=== PATIENT | male | born 1945 | race Caucasian/White ===

== ENCOUNTER 2017-08-01 08:16 | Day surgery (SDC) | payer MEDICARE, OTHER ==
--- NOTE | 2017-07-20 08:38 | HP ---
AMENDED REPORT NOW INCLUDES COSIGNER DESIGNATION - ESIGNED BEFORE ADJUSTMENT CC: Dr. Paresh Valadez; Dr. Low, Rheumatology * ADMISSION HISTORY AND PHYSICAL: DATE OF ADMISSION: 08/01/17. ATTENDING SURGEON: Dr. Mario Nieves * (JUAN DIEGO Spears, dictating). CHIEF COMPLAINT: Right inguinal hernia; umbilical hernia. HISTORY OF PRESENT ILLNESS: This is a 71-year-old hypertensive, obese male, who reports a 20-year history of intermittent right groin pain, this occurring primarily after strenuous activity and associated with a bulge. He states that he has never been previously told that he had an inguinal hernia, though had been told many years ago that he was likely to develop a hernia on that side. He has also had an umbilical bulge present for approximately 1 year, which has been minimally symptomatic. The patient has used a truss and/or scrotal support for the better part of the past 20 years to help control some of the discomfort that he experiences. This discomfort, however, has increased in recent months and he was referred here for evaluation. In addition, he reports one episode of gross hematuria and underwent renal ultrasound on 06/01/17, which was a normal study and the hematuria has not recurred. He was seen initially in our office by Dr. Nieves on 05/21/[address] Nieves's chart notes indicate that exam was limited by the patient's tenderness. It was felt that there was likely a right inguinal hernia and definitely confirmed umbilical hernia, which was tender to palpation, but reducible. The patient was requested to take his usual pain medications for re- examination this morning. However, he did not take any pain medication and likewise on today's exam, he is exquisitely tender and does not permit a complete definitive exam. Dr. Nieves's impression is that of right inguinal hernia as well as umbilical hernia and recommended plan is laparoscopic look at the right groin preperitoneal area to ascertain if there is indeed a hernia and to repair that with mesh. The umbilical hernia will be repaired in an open fashion. The patient understands the indications, the risks, benefits and alternatives and the expected perioperative course. He would like to proceed as scheduled with laparoscopic repair right inguinal hernia with mesh and open repair umbilical hernia. PAST MEDICAL HISTORY: 1. Hypertension. 2. Obesity. 3. BPH. 4. Chronic low back pain. 5. Bilateral eye disease including vitreous rupture. 6. Glaucoma. 7. Allergic rhinitis. 8. History of childhood asthma (minimally active as an adult). PAST SURGICAL HISTORY: Previous surgeries: 1. Multiple eye surgeries. 2. Tonsillectomy. No reported surgical or anesthesia complications. CURRENT MEDICATIONS: 1. Tizanidine 4 mg one half tablet t.i.d. p.r.n. 2. Celebrex 200 mg q. day (not currently taking). 3. EpiPen p.r.n. (uses rarely). 4. Zyrtec 10 mg q. day p.r.n. (not currently using). 5. Fluticasone nasal spray 2 sprays each nostril q. day (not currently using). 6. Amlodipine 5 mg q. day. 7. Hydrocodone and acetaminophen 5/325, one to two tablets t.i.d. p.r.n. (not currently using). 8. ProAir HFA 2 puffs q. 4 to 6 hours p.r.n. (has not needed recently). 9. Tramadol 50 mg q. 6 hours p.r.n. 10. Tamsulosin 0.4 mg q. day. 11. Montelukast 10 mg q. day p.r.n. ALLERGIES: Drug allergies, none known. FAMILY HISTORY: Negative for anesthesia problems, bleeding, or clotting disorder. SOCIAL HISTORY: The patient is . He is retired. He is a former smoker , who quit in 1990. He drinks alcohol infrequently and denies other recreational drug use. REVIEW OF SYSTEMS: General: No recent constitutional symptoms or acute illnesses. His weight is down approximately 15 to 20 pounds intentionally as he is trying to relieve some of the burden on his arthritis and joints and avoid chronic pain medication and/or other interventions. Cardiovascular: No chest pain, palpitations, history of murmur. He is treated for hypertension. Respiratory: No recent exacerbations of his asthma or allergies. No chronic cough. No shortness of breath. GI: No problems reported. Colonoscopy done approximately 3 years ago, normal by his report. : No urinary difficulties, though he does have BPH and is managed on tamsulosin, see also above per HPI. I did encourage him to consider consultation with urologist if he has persistent pain following surgery and/or future episodes of hematuria. Endocrine: No diabetes or thyroid dysfunction. HEENT: The patient is scheduled for an eye procedure at [facility] in [place] on . PHYSICAL EXAMINATION GENERAL: Well-nourished obese male, in no acute distress. VITAL SIGNS: Height 5 feet 8 inches, weight 218 pounds, BMI 34. Temperature 97.7, blood pressure 118/70, pulse 64. HEENT: Pupils are somewhat unequal presumably from prior surgeries. EOMs intact. No conjunctival pallor. Oropharynx: Teeth in good repair. No intraoral lesions. NECK: No lymphadenopathy, thyromegaly, or masses. LUNGS: Clear to auscultation. No wheezes or rales. HEART: Regular rate and rhythm. No murmur noted. ABDOMEN: Obese, visible umbilical bulge, consistent with known umbilical hernia. Abdomen is soft, nontender and without palpable masses or organomegaly. Right groin exam as above per Dr. Nieves. No hernia noted on the left. That exam was not repeated today by myself. EXTREMITIES: No edema. NEUROLOGICAL: Grossly intact. SKIN: Warm and dry. No suspicious rashes or lesions. BACK: No spinous process or CVA tenderness. IMPRESSION: Right inguinal hernia and umbilical hernia. PLAN: Laparoscopic repair of right inguinal hernia with mesh; open repair, umbilical hernia. JUAN DIEGO SPEARS [id number]/CPS #: [id number] [facility] CENTERSrini
[~2017-08-01 08:16] MED LIST: Buffered Lidocaine 0.9% SYRIN* 5 ML/SYR SYRINGE INTRADERM ONE; Buffered Lidocaine 0.9% SYRIN* 5 ML/SYR SYRINGE ONE; Bupivacaine 0.25% SDV* 30 ML ONE; Lidocaine 2% PF * 5 ML VIAL ONE; Naloxone* 0.4 MG/ML 1 ML VIAL IV PRN; Ondansetron INJ* 2 MG/ML VIAL IV PRN; Propofol* 10 MG/ML 20 ML BTL IV PUSH ONE; Rocuronium* 10 MG/ML VIAL ONE; Sodium Citrate/Citric Acid* 15 ML UDC ONE; Sodium Citrate/Citric Acid* 15 ML UDC PO ONE
[2017-08-01] MEDS ORDERED: fentaNYL* 50 MCG/ML 2 ML VIAL (100 MCG VIAL) ONE ×3 (09:09→12:44)
[2017-08-01] MEDS ORDERED: Neostigmine Methylsulfate* 2 MG/2 ML SYRINGE ONE (10:28)
[2017-08-01] MEDS ORDERED: Glycopyrrolate IV* 0.2 MG/ML 1 ML VIAL ONE (10:28)
[2017-08-01] MEDS ORDERED: EPHEDrine (Pressors)* 50 MG/ML VIAL ONE (10:29)
[2017-08-01] MEDS ORDERED: Dexamethasone IV* 4 MG/ML 1 ML (4 MG) ONE (10:29)
[2017-08-01] MEDS ORDERED: oxyCODONE/Acetamin 5/325 MG* TAB PO PRN (10:49)
[2017-08-01] MEDS: fentaNYL* 50 MCG/ML 2 ML VIAL (100 MCG VIAL) IV PRN ×3 (10:51→12:44)
[2017-08-01] MEDS ORDERED: oxyCODONE/Acetamin 5/325 MG* TAB ONE (11:07)
[2017-08-01] MEDS ORDERED: Ketorolac INJ* 30 MG/ML 1 ML VIAL ONE (13:16)
[2017-08-01 15:25] VITALS: BP 133/74
== END 2017-08-01 14:15 | disposition home or self-care (01) ==
LOC: OR 08:16
PROVIDERS: ATTEND Surgery
DX: K40.90 Unilateral inguinal hernia, without obstruction or gangrene, not specified as recurrent (principal); K42.9 Umbilical hernia without obstruction or gangrene; Z87.891 Personal history of nicotine dependence; I10 Essential (primary) hypertension; M54.5 Low back pain; Z68.33 Body mass index [BMI] 33.0-33.9, adult; G47.33 Obstructive sleep apnea (adult) (pediatric); J45.909 Unspecified asthma, uncomplicated
CPT/HCPCS: 88302; A9270-GY; C1776; C1781; J1100; J1885; J2704; J3010

== ENCOUNTER 2017-09-15 16:40 | Emergency (ER) | payer MEDICARE, OTHER ==
[2017-09-15] MEDS ORDERED: Ondansetron INJ* 2 MG/ML VIAL IV ONE (17:02)
[2017-09-15] MEDS ORDERED: Morphine INJ* 4 MG/ML 1 ML SYRINGE (NEW SYRINGE VERSION) IV ONE (17:02)
[2017-09-15] MEDS ORDERED: Ondansetron INJ* 2 MG/ML VIAL ONE (17:03)
[2017-09-15] MEDS ORDERED: Morphine INJ* 10 MG/ML 1 ML CARPUJECT ONE (17:03)
[2017-09-15] MEDS ORDERED: Morphine INJ* 10 MG/ML 1 ML CARPUJECT IV ONE (17:08)
[2017-09-15] MEDS ORDERED: Orphenadrine Citrate IV* 30 MG/ML 2 ML VIAL IV ONE (17:11)
--- NOTE | 2017-09-15 18:05 | RAD ---
Indication: RIGHT leg pain above the ankle post fall. Deformity. Comparison: March 15, 2016 RIGHT foot radiographs. Technique: AP, mortise, and lateral views RIGHT ankle. AP and lateral views of the RIGHT lower leg. Report: Oblique fracture through the distal diaphysis and distal metaphysis of the fibula terminating inferiorly at the level of the ankle mortise. One cortex width lateral displacement. Associated superior lateral widening of the ankle mortise. Talocrural joint effusion. Negative for additional fracture at the ankle or lower leg. Soft tissue swelling most prominent over the anterior and lateral aspects of the ankle. IMPRESSION: Lombardo type B fracture pattern of the distal fibula which appears unstable given widening at the superolateral margin of the ankle mortise. Negative for additional fracture.
[2017-09-15 19:16] VITALS: BP 145/71
[2017-09-15] MEDS ORDERED: Morphine INJ** 4 MG/ML 1 ML CARPUJECT IV ONE (20:03)
[2017-09-15] MEDS ORDERED: Morphine INJ* 4 MG/ML 1 ML SYRINGE (NEW SYRINGE VERSION) ONE (20:07)
[2017-09-15] MEDS ORDERED: oxyCODONE/Acetamin 5/325 MG* TAB PO ONE (20:32)
--- NOTE | 2017-09-15 20:33 | RAD ---
Indication: Fall down stairs. Pain and deformity post fall. Comparison: No relevant prior exams available on the [facility] PACS for comparison. Technique: AP pelvis and AP and crosstable lateral views RIGHT femur. Report: The RIGHT hip is normally located. No cortical disruption or suspicious trabecular irregularity evident at the RIGHT hip, entire femur, or pelvis to indicate fracture. Preserved bilateral hip joint spaces. Negative for pelvic joint diastases. Unremarkable soft tissue contours. IMPRESSION: No radiographic evidence for RIGHT hip or femur fracture. Negative exam. As x-rays may be negative with nondisplaced hip fracture if there is persistent clinical concern MRI or in setting of contraindication to MRI or limitation in emergent access to MRI CT would be suggested.
--- NOTE | 2017-09-15 20:33 | RAD ---
Indication: Fall down stairs. Pain and deformity post fall. Comparison: No relevant prior exams available on the [facility] PACS for comparison. Technique: AP pelvis and AP and crosstable lateral views RIGHT femur. Report: The RIGHT hip is normally located. No cortical disruption or suspicious trabecular irregularity evident at the RIGHT hip, entire femur, or pelvis to indicate fracture. Preserved bilateral hip joint spaces. Negative for pelvic joint diastases. Unremarkable soft tissue contours. IMPRESSION: No radiographic evidence for RIGHT hip or femur fracture. Negative exam. As x-rays may be negative with nondisplaced hip fracture if there is persistent clinical concern MRI or in setting of contraindication to MRI or limitation in emergent access to MRI CT would be suggested.
--- NOTE | 2017-09-15 20:43 | ED ---
Lower Extremity - HPI Summary HPI Summary: Patient is a 72-year-old male presenting to the ED after a slip and fall with a potential inversion of the ankle injury. He endorses tentative 10 pain on arrival. He is unable to bear weight. There is a small deformity into the lateral ankle. He also endorses pain throughout the entire leg including the hip. Endorses numbness and tingling to the hip and down the lateral side of the upper leg, but denies any numbness or tingling to the bilateral feet or lower extremity. Pulses intact +2 bilaterally. Has never injured the foot in the past. Denies any head injury or other pain at this time. - History of Current Complaint Chief Complaint: EDExtremityLower Stated Complaint: FELL DOWN STAIRS Time Seen by Provider: 09/15/17 16:50 Hx Obtained From: Patient Mechanism Of Injury: Fall From A Standing Position, Twisted Onset of Pain: Immediate Onset/Duration: Minutes Severity Initially: Severe Severity Currently: Moderate Pain Intensity: 9 Pain Scale Used: 0-10 Numeric Timing: Constant Location: Is Discrete @ - Right lateral malleolus and anterior lower extremity Character Of Pain: Aching Associated Signs And Symptoms: Positive: Swelling. Negative: Redness, Bruising , Weakness, Dizziness, Syncope Aggravating Factor(s): Standing, Ambulation Alleviating Factor(s): Rest Able to Bear Weight: No - Risk Factors Gout Risk Factors: Age Over 40, Male DVT Risk Factors: Negative Septic Arthritis Risk Factor: Negative - Allergies/Home Medications Allergies/Adverse Reactions: Allergies Allergy/AdvReac Type Severity Reaction Status Date / Time ENVIRONMENTAL Allergy Intermediate Eyes Uncoded 08/01/17 08:28 Itchy/Swollen/Red/Watery Home Medications: Home Medications EPINEPHrine [Epipen] 0.3 mg IJ ONCE PRN 09/15/17 [History Confirmed 09/15/17] PMH/Surg Hx/FS Hx/Imm Hx Previously Healthy: Yes Endocrine/Hematology History: Denies: Hx Diabetes Cardiovascular History: Reports: Hx Hypertension - controlled with meds Denies: Hx Pacemaker/ICD Respiratory History: Reports: Hx Asthma - MAINTAINED - HAS PRN INHALER AND EPI- PEN, Hx Seasonal Allergies, Hx Sleep Apnea GI History: Reports: Hx Ulcer - gastric - healed History: Reports: Hx Benign Prostatic Hyperplasia, Other Problems/ Disorders - BPH Denies: Hx Renal Disease Musculoskeletal History: Reports: Hx Arthritis - osteoarthritis, rheumatoid, Hx Back Problems Sensory History: Reports: Hx Cataracts - forming, Hx Contacts or Glasses Denies: Hx Hearing Aid Opthamlomology History: Reports: Hx Cataracts - forming, Hx Contacts or Glasses Psychiatric History: Denies: Hx Panic Disorder - Surgical History Surgery Procedure, Year, and Place: TONSIL; WISDOM TEETH;. colonoscopy. cut out infection in left leg- in [place] Hx Anesthesia Reactions: No - Immunization History Hx Pertussis Vaccination: No Immunizations Up to Date: Unable to Obtain/Confirm - try Infectious Disease History: No Infectious Disease History: Denies: Traveled Outside the [place] in Last 30 Days - Social History Occupation: Unemployed, Retired Lives: With Family Alcohol Use: Occasionally Hx Substance Use: No Substance Use Type: Reports: None Hx Tobacco Use: No Smoking Status (MU): Former Smoker Amount Used/How Often: smoked for 25-30 years 1ppd Review of Systems Constitutional: Negative Negative: Fever, Fatigue Eyes: Negative Cardiovascular: Negative Negative: Abdominal Pain, Vomiting, Diarrhea Positive: no symptoms reported, see HPI Positive: Arthralgia, Myalgia Positive: Other - swelling of the right lower extremity over the lateral malleolus Neurological: Negative All Other Systems Reviewed And Are Negative: Yes Physical Exam Triage Information Reviewed: Yes Vital Signs On Initial Exam: Initial Vitals Temp Pulse Resp BP Pulse Ox 98.7 F 66 22 125/81 98 09/15/17 16:47 09/15/17 16:47 09/15/17 16:47 09/15/17 16:47 09/15/17 16:47 Vital Signs Reviewed: Yes Appearance: Positive: Well-Appearing, Well-Nourished Skin: Positive: Warm, Skin Color Reflects Adequate Perfusion Head/Face: Positive: Normal Head/Face Inspection, Temporal Artery Tenderness Eyes: Positive: EOMI, CL[place]ENCE Neck: Positive: Supple, No Lymphadenopathy Respiratory/Lung Sounds: Positive: Clear to Auscultation, Breath Sounds Present Cardiovascular: Positive: RRR, Pulses are Symmetrical in both Upper and Lower Extremities Musculoskeletal: Positive: Pain @ - Right lateral malleolus and right anterior lower extremity pain on palpation, Other - Slight swelling to the right lateral malleolus Neurological: Positive: Sensory/Motor Intact, Alert, Oriented to Person Place, Time, Speech Normal Psychiatric: Positive: Normal, Affect/Mood Appropriate AVPU Assessment: Alert Diagnostics - Vital Signs Vital Signs Temp Pulse Resp BP Pulse Ox 09/15/17 20:11 17 09/15/17 19:15 74 16 145/71 98 09/15/17 19:00 73 145/71 98 09/15/17 18:30 70 154/87 96 09/15/17 18:00 67 145/79 95 09/15/17 17:30 67 149/73 98 09/15/17 17:23 67 147/80 97 09/15/17 17:09 26 09/15/17 17:08 26 09/15/17 17:07 76 97 09/15/17 16:47 98.7 F 66 22 125/81 98 - Laboratory Lab Statement: Any lab studies that have been ordered have been reviewed, and results considered in the medical decision making process. Lower Extremity Course/Dx - Course Course Of Treatment: During the course of treatment, the patient is evaluated for right lower extremity pain and deformity. X-rays obtained which show Lombardo type B fracture pattern of the distal fibula which appears unstable given widening at the superolateral margin of the ankle mortise. Negative for additional fracture. Oblique fracture through the distal diaphysis and distal metaphysis of the fibula terminating inferiorly at the level of the ankle mortise. X-rays of the hip show no obvious fracture. Log rolled the patient with no additional pain so I will not at this time obtain a CT scan. Deep palpation of the pelvis and lateral hip with no pain. Pain is discretely located over the anterior lower extremity and lateral malleolus. There is no tenting of the skin, no ecchymosis, slight swelling. I've discussed the case with Dr. López who was able to look at the x-rays. He is advised a posterior walking splint. Plaster splint applied, patient tolerated well. During his course of treatment he received 12 mg total of morphine, 4 mg Zofran and 60 mg Norflex. He continues to endorse pain, but states pain reduced from 10 out of 10 to a 4 out of 10. Patient tolerated splint placement well. He is advised to follow up with [facility] on Sunday morning for an appointment. Nonweightbearing. Crutches given. Oxycodone 6 tabs given prior to discharge due to pharmacy closing's. Pain control prescribed. He is also encouraged ibuprofen 600mg 3 times daily, elevate the leg. - Diagnoses Provider Diagnoses: Fracture of distal fibula Discharge - Sign-Out/Discharge Documenting (check all that apply): Discharge - Discharge Plan Condition: Stable Disposition: HOME Prescriptions: oxyCODONE/Acetamin 325(NF) [Percocet 10/325 (NF)] 1 tab PO TID #15 tab MDD 3 Patient Education Materials: Leg Fracture (ED) Referrals: Paresh Valadez MD [Primary Care Provider] - Erik López MD [Medical Doctor] - Additional Instructions: Please follow up with ortho - call Sunday for appt I have given you a referral Non weight-bearing Ibuprofen 600mgree times daily for discomfort and inflammation For pain not well controlled with ibuprofen, please take the pain medications IN ADDITION but on opposite schedule Crutches Do not get the splint wet - Billing Disposition and Condition Condition: STABLE Disposition: HOME
== END 2017-09-15 21:22 | disposition home or self-care (01) ==
LOC: ED 16:40
DX: S82.831A Other fracture of upper and lower end of right fibula, initial encounter for closed fracture (principal); W10.9XXA Fall (on) (from) unspecified stairs and steps, initial encounter; Y92.9 Unspecified place or not applicable; Z86.79 Personal history of other diseases of the circulatory system; Z87.891 Personal history of nicotine dependence
CPT/HCPCS: 72170; 96374; 96375; 99284; J2270; J2360; J2405